=== PATIENT | female | born 2000 | race Caucasian/White ===

== ENCOUNTER 2024-02-02 07:42 | Observation (INO) | payer OTHER, SELFPAY ==
[2024-02-02] VITALS (7 sets, daily range): BP systolic 110–135; BP diastolic 65–99; PULSE 71–93; RESP 18; TEMP 36.7–37.5; O2SAT 98–99; BMI 27.4; BMI 27.2
--- NOTE | 2024-02-02 08:02 | ED_ITS ---
HPI - General Adult General Chief complaint: Skin/Abscess/Foreign Body Stated complaint: chest pain, vomiting, sent by [facility] Time Seen by Provider: 02/02/24 07:44 Source: patient Mode of arrival: Ambulatory Limitations: no limitations History of Present Illness HPI narrative: Otherwise healthy 23-year-old female here for evaluation of potential esophageal foreign body. States she was eating chicken last night. She states that she felt like it got stuck in her esophagus. Since that time she has had difficulty tolerating any sort of secretions. She was able to swallow somewhat but it is very painful for her to swallow. States he feels like it gets stuck in her lower esophagus and then she is to spit it back up. She went to the walk-in clinic this morning. She was given a GI cocktail. She states she threw that up very quickly. She states she was able to swallow a Tylenol but it was just the pill without any liquids. She did not think that she vomited up the pill. She has no problems breathing. She has had issues with swallowing in the past. She states she very frequently will swallow a piece of steak and we get stuck in her esophagus but she has never been seen before because of a. Has never had an endoscopy. Related Data Home Medications Medication Instructions Recorded Confirmed norethindrone 1.5 mg-ethinyl 1 tab PO DAILY 02/02/24 02/02/24 estradiol 30 mcg(21)/iron 75 mg(7) tablet (June FE .01/04 (28)) Allergies Allergy/AdvReac Type Severity Reaction Status Date / Time No Known Drug Allergies Allergy Unverified 02/02/24 07:19 Review of Systems Respiratory Respiratory: Reports system reviewed and no additional complaints, except as documented Gastrointestinal Gastrointestinal: Reports system reviewed and no additional complaints, except as documented Genitourinary Genitourinary: Reports system reviewed and no additional complaints, except as documented Integumentary/Breasts Skin/Breast: Reports system reviewed and no additional complaints, except as documented Hematologic/Lymphatic On Anticoagulants: No Patient History Social History Smoking Status: Never smoker Smoking Status: Never smoker Exam Initial Vital Signs Initial Vital Signs: Vital Signs Temperature 99.5 F 02/02/24 08:01 Pulse Rate 84 02/02/24 08:01 Respiratory Rate 18 02/02/24 08:01 Blood Pressure 135/99 H 02/02/24 08:01 Pulse Oximetry 98 02/02/24 08:01 Oxygen Delivery Method Room Air 02/02/24 08:01 HENMT Head: normal to inspection and normocephalic Resp Effort & Inspection: normal respiratory effort Cardio Rate: regular rate GI Inspection: normal to inspection and non-distended Skin General: no rashes or lesions noted Neuro General: patient alert, patient awake and moves all extremities Extrem General: capillary refill normal Course Orders Ordered: ED Orders 02/02/24 08:10 Complete Blood Count AUTO DIFF Stat Comprehensive Metabolic Panel Stat Lipase Stat Test Serum,Qual Stat 02/02/24 08:50 Consult to General Surgery Stat Sodium Chloride (Normal Saline 0.9%) 1,000 mls @ 125 mls/hr IV CONT JENARO Last Admin: 02/02/24 08:19 Dose: 125 mls/hr Documented By: DARRON Discontinued Medications Glucagon (Glucagon,Human Recombinant 1 Mg/Ml Vial) 1 mg IV NOW ONE Stop: 02/02/24 08:01 Last Admin: 02/02/24 08:18 Dose: 1 mg Documented By: DARRON Vital Signs Vital signs: Vital Signs - 8 hr 02/02/24 08:01 02/02/24 08:06 02/02/24 08:28 Temperature 99.5 F Pulse Rate 84 92 H Respiratory Rate 18 Blood Pressure 135/99 H 123/77 Pulse Oximetry 98 98 Oxygen Delivery Method Room Air 02/02/24 08:28 02/02/24 08:30 02/02/24 08:30 Temperature Pulse Rate 93 H 82 Respiratory Rate Blood Pressure 122/75 Pulse Oximetry 98 99 Oxygen Delivery Method 02/02/24 09:00 02/02/24 09:00 Temperature Pulse Rate 71 Respiratory Rate Blood Pressure 110/65 Pulse Oximetry 99 Oxygen Delivery Method Medical Decision Making Lab Data Lab results reviewed: Yes I reviewed the patient's lab results. 02/02/24 08:10 02/02/24 08:10 Labs: Lab Results 02/02/24 Range/Units 08:10 WBC 10.2 (4.5-11.0) X10^3/uL RBC 5.40 H (4.0-5.2) X10^6/uL Hgb 15.6 (12.0-16.0) g/dL Hct 44.6 (36-46) % MCV 82.7 (80-100) fL MCH 28.8 (26-34) PG MCHC 34.8 (30-36) % RDW 12.2 (11.6-14.8) % Plt Count 253 (150-400) X10^3/uL Neut % (Auto) 64.3 (50-75) % Lymph % (Auto) 22.3 L (25-40) % [place] % (Auto) 8.4 (3-14) % Eos % (Auto) 4.6 H (2-4) % Baso % (Auto) 0.4 (0-2) % Neut # (Auto) 6600 (3264-9054) /uL Lymph # (Auto) 2300 (6509-9532) /uL [place] # (Auto) 900 (0-900) /uL Eos # (Auto) 500 H (0-450) /uL Baso # (Auto) 0 (0-100) /uL Sodium 139 (137-145) mmol/L Potassium 4.0 (3.4-5.1) mmol/L Chloride 108 H (98-107) mmol/L Carbon Dioxide 22 (22-32) mmol/L BUN 14 (7-17) mg/dL Creatinine 0.90 (0.52-1.04) mg/dL Estimated GFR > 60 (>60) mL/min BUN/Creatinine Ratio 15.6 (6-22) Glucose 87 (70-100) mg/dL Calcium 9.1 (8.4-10.2) mg/dL Total Bilirubin 1.2 (0.2-1.3) mg/dL AST 22 (14-36) IU/L ALT 15 (<35) IU/L Alkaline Phosphatase 75 (38-126) U/L Total Protein 7.5 (6.3-8.2) g/dL Albumin 4.6 (3.5-5.0) g/dL Globulin 2.9 (1.7-4.1) g/dL Albumin/Globulin Ratio 1.6 (1.0-2.8) Lipase 72 (23-300) U/L Serum , Qual Negative (Negative) MDM Narrative Medical decision making narrative: No respiratory distress. Patient has been unable to tolerate even her own secretions. She feels like that there is an obstruction in the lower esophagus. Attempted conservative measures here without improvement. Discussed the case with Dr. Matthew on-call with General surgery who will take the patient for a EGD. Discussed this with the patient. She expressed understanding and agreement. Discharge Plan Departure Patient Disposition: Admitted to Surgery Clinical Impression: Esophageal foreign body Admit Date/Time: 02/02/24 09:14 Admit Provider: Itz Colby
[2024-02-02] MEDS: GLUCAGON,HUMAN RECOMBINANT 1 MG/ML VIAL IV (08:18)
[2024-02-02] MEDS: SODIUM CHLORIDE 0.9% 1,000 ML 125 ML IV (08:19)
[2024-02-02 08:21] LABS: Add Manual Diff / Slide Review NO; Basophils Absolute Auto 0 /uL (0-100); Basophils Percent Auto 0.4 % (0-2); Eosinophils Absolute Auto 500 /uL (0-450); Eosinophils Percent Auto 4.6 % (2-4); Hematocrit 44.6 % (36-46); Hemoglobin 15.6 g/dL (12.0-16.0); Lymphocytes Absolute Auto 2300 /uL (1100-4500); Lymphocytes Percent Auto 22.3 % (25-40); Mean Corpuscular HGB Conc 34.8 % (30-36); Mean Corpuscular Hemoglobin 28.8 PG (26-34); Mean Corpuscular Volume 82.7 fL (80-100); Monocytes Absolute Auto 900 /uL (0-900); Monocytes Percent Auto 8.4 % (3-14); Neutrophils Absolute Auto 6600 /uL (1500-7000); Neutrophils Percent Auto 64.3 % (50-75); Platelet Count 253 X10^3/uL (150-400); Red Cell Distribution Width 12.2 % (11.6-14.8); White Blood Cell Count 10.2 X10^3/uL (4.5-11.0)
[2024-02-02 08:30] LABS: Alanine Aminotransferase 15 IU/L (<35); Albumin 4.6 g/dL (3.5-5.0); Albumin Globulin Ratio 1.6 (1.0-2.8); Alkaline Phosphatase 75 U/L (38-126); Aspartate Aminotransferase 22 IU/L (14-36); BUN Creatinine Ratio 15.6 (6-22); Bilirubin Total 1.2 mg/dL (0.2-1.3); Blood Urea Nitrogen 14 mg/dL (7-17); Calcium 9.1 mg/dL (8.4-10.2); Carbon Dioxide 22 mmol/L (22-32); Chloride 108 mmol/L (98-107); Estimated Glomerular Filt Rate > 60 mL/min (>60); Globulin 2.9 g/dL (1.7-4.1); Glucose 87 mg/dL (70-100); HEMOLYSIS < 15 (0-50); Lipase 72 U/L (23-300); Sodium 139 mmol/L (137-145); Total Protein 7.5 g/dL (6.3-8.2)
[2024-02-02 08:31] LABS: Pregnancy Test Serum,Qual Negative (Negative)
--- NOTE | 2024-02-02 11:04 | EKG_ITS ---
[address] [address] Test Date: 2024-02-02 Pat Name: Rhiannon Henriquez Department: Room: 202 Gender: Female Gas [employer]r: DERRICK : 2000 Requested By: Order Number: [id number] Reading MD: Martinez Jensen Measurements Intervals [place] Rate: 63 P: 58 MA: 112 QRS: 41 QRSD: 78 T: 45 QT: 410 QTc: 419 Interpretive Statements Normal sinus rhythm Electronically Signed On 02-02-2024 15:13:35 PDT by Martinez Jensen
--- NOTE | 2024-02-02 14:24 | PC.NURSE ---
14:[address] UPDATED THAT PT IS FEELING BETTER NO BLOCKAGE, NEW ORDER FOR FLUIDS AND ADV JC.
--- NOTE | 2024-02-02 15:26 | P.HP_ITS ---
History of Present Illness History of Present Illness Date Patient Seen: 02/02/24 Time Patient Seen: 15:26 Chief complaint: chest pain, vomiting, sent by [facility] Narrative: Renetta is a 23-year-old woman who presented for dysphagia. She was eating chicken last night and feels like the chicken got lodged in her esophagus. She has not been able to swallow her secretions. She has had problems swallowing in the past but never needed to go to the ER or have a procedure. She has never had an EGD. She was admitted to the hospital to await esophagogastroduodenoscopy. While she was waiting for the procedure she felt like the obstruction resolved. She has since been able to tolerate liquids and soft diet. [facility] Social History household members: none Smoking Status: Never smoker alcohol intake: current Meds Home Medications and Allergies Home Medications Medication Instructions Recorded Confirmed Type norethindrone 1.5 mg-ethinyl 1 tab PO DAILY 02/02/24 02/02/24 History estradiol 30 mcg(21)/iron 75 mg(7) tablet (Junel FE 1.5/30 (28)) Allergies Allergy/AdvReac Type Severity Reaction Status Date / Time No Known Drug Allergies Allergy Verified 02/02/24 13:58 Exam Vital Signs (past 8 hours): - 02/02/24 08:01 02/02/24 08:06 02/02/24 08:28 Temperature 99.5 F Pulse Rate 84 92 H Respiratory Rate 18 Blood Pressure 135/99 H 123/77 Pulse Oximetry 98 98 Oxygen Delivery Method Room Air 02/02/24 08:28 02/02/24 08:30 02/02/24 08:30 Temperature Pulse Rate 93 H 82 Respiratory Rate Blood Pressure 122/75 Pulse Oximetry 98 99 Oxygen Delivery Method 02/02/24 09:00 02/02/24 09:00 02/02/24 09:30 Temperature Pulse Rate 71 Respiratory Rate Blood Pressure 110/65 118/76 Pulse Oximetry 99 Oxygen Delivery Method 02/02/24 09:30 02/02/24 12:00 Temperature 98.1 F Pulse Rate 83 76 Respiratory Rate 18 Blood Pressure 120/68 Pulse Oximetry 99 98 Oxygen Delivery Method Oxygen Delivery Method Room Air Const General: No acute distress Resp Effort & Inspection: normal respiratory effort Objective Labs 02/02/24 08:10 02/02/24 08:10 Labs: Laboratory Results - last 24 hr 02/02/24 08:10 WBC 10.2 RBC 5.40 H Hgb 15.6 Hct 44.6 MCV 82.7 MCH 28.8 MCHC 34.8 RDW 12.2 Plt Count 253 Neut % (Auto) 64.3 Lymph % (Auto) 22.3 L Day % (Auto) 8.4 Eos % (Auto) 4.6 H Baso % (Auto) 0.4 Neut # (Auto) 6600 Lymph # (Auto) 2300 Day # (Auto) 900 Eos # (Auto) 500 H Baso # (Auto) 0 Sodium 139 Potassium 4.0 Chloride 108 H Carbon Dioxide 22 BUN 14 Creatinine 0.90 Estimated GFR > 60 BUN/Creatinine Ratio 15.6 Glucose 87 Calcium 9.1 Total Bilirubin 1.2 AST 22 ALT 15 Alkaline Phosphatase 75 Total Protein 7.5 Albumin 4.6 Globulin 2.9 Albumin/Globulin Ratio 1.6 Lipase 72 Serum , Qual Negative Assessment & Plan Assessment and plan (1) Esophageal foreign body: Qualifiers: Encounter type: initial encounter Qualified Code(s): T18.108A - Unspecified foreign body in esophagus causing other injury, initial encounter Status: Acute Plan Since she has been able to tolerate a diet is clear that the esophageal food impaction has resolved. She can be discharged home and follow up as an outpatient for an EGD. Quality VTE Deep Vein Thrombosis/Pulmonary Embolism Present on Admission: No
--- NOTE | 2024-02-02 15:31 | PM.DS.1 ---
History of Present Illness History of Present Illness Chief complaint: chest pain, vomiting, sent by [facility] Narrative: Renetta is a 23-year-old woman who presented for dysphagia. She was eating chicken last night and feels like the chicken got lodged in her esophagus. She has not been able to swallow her secretions. She has had problems swallowing in the past but never needed to go to the ER or have a procedure. She has never had an EGD. She was admitted to the hospital to await esophagogastroduodenoscopy. While she was waiting for the procedure she felt like the obstruction resolved. She has since been able to tolerate liquids and soft diet. Discharge Providers Provider Date of admission: 02/02/24 09:14 Discharge Date: 02/02/24 Primary care physician: Doctor Silvino MD Consults: 02/02/24 08:50 Consult to General Surgery Stat Comment: Consulting Provider: Itz Colby Reason for consultation: Esophageal foreign-body Has provider been notified: Yes Discharge provider: Yovani Walter MD Summary Hospital Course Discharge Diagnosis: Esophageal food impaction resolved Hospital Course: The patient was admitted for an esophageal food impaction. While she was waiting for an EGD her symptoms resolved. She was able to tolerate clear liquids and was discharged home. She can arrange an office visit to set up an EGD as an outpatient. Exam Vital Signs (past 8 hours): - 02/02/24 08:01 02/02/24 08:06 02/02/24 08:28 Temperature 99.5 F Pulse Rate 84 92 H Respiratory Rate 18 Blood Pressure 135/99 H 123/77 Pulse Oximetry 98 98 Oxygen Delivery Method Room Air 02/02/24 08:28 02/02/24 08:30 02/02/24 08:30 Temperature Pulse Rate 93 H 82 Respiratory Rate Blood Pressure 122/75 Pulse Oximetry 98 99 Oxygen Delivery Method 02/02/24 09:00 02/02/24 09:00 02/02/24 09:30 Temperature Pulse Rate 71 Respiratory Rate Blood Pressure 110/65 118/76 Pulse Oximetry 99 Oxygen Delivery Method 02/02/24 09:30 02/02/24 12:00 Temperature 98.1 F Pulse Rate 83 76 Respiratory Rate 18 Blood Pressure 120/68 Pulse Oximetry 99 98 Oxygen Delivery Method Oxygen Delivery Method Room Air Objective Labs 02/02/24 08:10 02/02/24 08:10 Labs: Laboratory Results - last 24 hr 02/02/24 08:10 WBC 10.2 RBC 5.40 H Hgb 15.6 Hct 44.6 MCV 82.7 MCH 28.8 MCHC 34.8 RDW 12.2 Plt Count 253 Neut % (Auto) 64.3 Lymph % (Auto) 22.3 L [place] % (Auto) 8.4 Eos % (Auto) 4.6 H Baso % (Auto) 0.4 Neut # (Auto) 6600 Lymph # (Auto) 2300 [place] # (Auto) 900 Eos # (Auto) 500 H Baso # (Auto) 0 Sodium 139 Potassium 4.0 Chloride 108 H Carbon Dioxide 22 BUN 14 Creatinine 0.90 Estimated GFR > 60 BUN/Creatinine Ratio 15.6 Glucose 87 Calcium 9.1 Total Bilirubin 1.2 AST 22 ALT 15 Alkaline Phosphatase 75 Total Protein 7.5 Albumin 4.6 Globulin 2.9 Albumin/Globulin Ratio 1.6 Lipase 72 Serum , Qual Negative [facility] Social History household members: none Smoking Status: Never smoker alcohol intake: current Discharge Plan Discharge Plan Patient Disposition: Home Provider Discharge Comment: Contact [facility] at [phone] to arrange for an office visit to discuss EGD. Discharge orders & Medications Prescriptions: Continued norethindrone-e.estradiol-iron [ (28)] 1.5 mg-30 mcg (21)/75 mg (7) tablet 1 tab PO DAILY Follow up/Referrals: Doctor Dubois MD [Primary Care Provider] - Visit Report/Discharge Packet Stand Alone Forms: Patient Portal/API, Stroke Signs & Symptoms Discharge Data Primary Care Provider: Doctor Silvino Attending Provider: Itz Colby Admit Date/Time: 02/02/24 09:14 Quality VTE Deep Vein Thrombosis/Pulmonary Embolism Present on Admission: No
== END 2024-02-02 15:56 | disposition home or self-care (01) ==
LOC: ED 09:05 → AC 09:16
PROVIDERS: Admitting Provider Surgery; Emergency Provider Emergency Medicine; Referring Provider Emergency Medicine; Visit Provider Surgery
DX: R13.10 Dysphagia, unspecified (principal); R07.9 Chest pain, unspecified; R11.10 Vomiting, unspecified
CPT/HCPCS: 36415; 80053; 83690; 84703; 85025; 93005; 96361; 96374; 99284; G0378; J1610; J2704